=== PATIENT | male | born 1995 | race Caucasian/White ===

== ENCOUNTER 2019-12-18 19:41 | Emergency (ER) | payer OTHER ==
[~2019-12-18] VITALS: Ht 177.8 cm; Wt 100.0 kg
[2019-12-18 19:47] VITALS: BP 108/66
--- NOTE | 2019-12-18 19:56 | NUR ---
BIB [facility] FROM HOME. PT GIRLFRIEND FOUND PT UNRESPONSIVE IN BED THIS EVENING. PT STATED HE TOOK "1/4 PILL OF FENTYNAL AND METH ON SATURDAY". [employer] [facility]: OXYGEN AT 77%, PLACED ON 4L OXYGEN VIA NC, PIV 18G LAC. PT CONNECTED TO MONITORING. CONTINUED ON 2L OXYGEN VIA NC. PT STATES "WAS NOT TRYING TO HURT MYSELF" WHEN ASKED ABOUT TAKING PILL. PT SLEEPING, BUT AWAKENS WHEN SPOKEN TO AND ANSWERS QUESTIONS.
[2019-12-18 20:30] LABS: BASOPHILS # (AUTO) 0.02 x10^3/uL (0-0.1); BASOPHILS % (AUTO) 0 % (0-1); EOSINOPHILS # (AUTO) 0.17 x10^3/uL (0-0.4); EOSINOPHILS % (AUTO) 2 % (1-7); LYMPHOCYTES % (AUTO) 14 % (22-44); MD NO; MEAN CORPUSCULAR HEMOGLOBIN 31.2 pg (27.5-34.5); MEAN CORPUSCULAR HGB CONC 33.8 g/dL (33.2-36.2); MEAN CORPUSCULAR VOLUME 92.5 fL (81-97); MEAN PLATELET VOLUME 8.4 fL (7.4-10.4); MONOCYTES # (AUTO) 0.76 x10^3/uL (0.2-0.8); MONOCYTES % (AUTO) 6 % (2-9); NEUTROPHILS # (AUTO) 9.26 x10^3/uL (1.8-6.8); NEUTROPHILS % (AUTO) 78 % (42-75); PLATELET COUNT 235 x10^3/uL (130-400); RED BLOOD COUNT 4.75 x10^6/uL (4.38-5.82); RED CELL DISTRIBUTION WIDTH 13.3 % (9.4-14.8)
--- NOTE | 2019-12-18 20:35 | NUR ---
PT STOOD BEDSIDE TO ATTEMPT TO PROVIDE URINE SAMPLE. PT STATES UNABLE TO URINATE AT THIS TIME. WATER GIVEN TO PT TO FACILITATE URINE SAMPLE.
[2019-12-18 20:39] LABS: ALANINE AMINOTRANSFERASE 56 U/L (12-78); ALBUMIN 3.5 g/dL (3.4-5.0); ANION GAP 7 mmol/L (5-15); CHLORIDE 107 mmol/L (98-107); CREATININE 1.19 mg/dL (0.7-1.3)
[2019-12-18 20:40] LABS: SALICYLATE LEVEL < 1.7 mg/dL (2.8-20.0)
[2019-12-18 20:41] LABS: ALKALINE PHOSPHATASE 71 U/L (45-117); BILIRUBIN,TOTAL 0.2 mg/dL (0.2-1.0); TOTAL PROTEIN 6.5 g/dL (6.4-8.2)
--- NOTE | 2019-12-18 21:23 | NUR ---
PT ATTEMPTED TO URINATE AGAIN WITHOUT SUCCESS. NOTIFIED. NO NEED TO STRAIGHT CATH AT THIS TIME.
--- NOTE | 2019-12-18 21:25 | NUR ---
PT STATES HE FEELS A LOT BETTER NOW THAN HE DID BEFORE.
== END 2019-12-18 22:20 | disposition home or self-care (01) ==
LOC: ED 21:05
DX: T40.601A Poisoning by unspecified narcotics, accidental (unintentional), initial encounter (principal); R94.31 Abnormal electrocardiogram [ECG] [EKG]; F17.210 Nicotine dependence, cigarettes, uncomplicated
CPT/HCPCS: 36415; 71045; 80053; 80307; 83605; 85025; 93005; 99285; 99406